=== PATIENT | male | born 1945 | race Caucasian/White ===

== ENCOUNTER → 2019-02-17 | Outpatient (CLI) | payer MEDICARE, OTHER ==
--- NOTE | 2019-02-17 11:04 | Diagnostic Imaging Report ---
INDICATION: Left shoulder pain x 3 months. No known injury. TECHNIQUE: Two views of the left shoulder. CORRELATION STUDY: None. FINDINGS: There is narrowing of the glenohumeral joint with slight loss of normal smooth margins of the bony glenoid, suggestive of chronic degenerative change. The acromioclavicular joint is also with mild degenerative changes. Bony structures and joints are otherwise unremarkable. Soft tissues appearing unremarkable. 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 Negative for acute bony abnormality. Dictated by: Dictated on workstation # [id number]
== END ==
LOC: RAD FS 10:25
PROVIDERS: ATTEND Family Medicine
DX: S46.912A Strain of unspecified muscle, fascia and tendon at shoulder and upper arm level, left arm, initial encounter (principal); M19.012 Primary osteoarthritis, left shoulder
CPT/HCPCS: 73030

== ENCOUNTER 2021-02-15 11:30 | Emergency (ER) | payer MEDICARE, OTHER ==
[~2021-02-15] VITALS: Ht 170 cm; Wt 124.0 kg
--- NOTE | 2021-02-15 11:56 | ED Dyspnea ---
General Chief Complaint: Respiratory Problems Stated Complaint: SOB Nursing Triage Note: PT REPORTS SOB FOR 6-8 WEEKS MAYBE 6 MONTHS(?) NOW. HE HAS BEEN TO HIS DR BINGHAM AND HE WAS TOLD TO TAKE MUCINEX. PT REPORTS HE BECOMES MORE SHORT OF BREATH WHEN HE LAYS DOWN. DENIES SWELLING AND IS NOT CURRENTLY SOB. Source of Information: Patient History of Present Illness Date Seen by Provider: Feb 15, 2021 Time Seen by Provider: 11:31 Initial Comments 75-year-old male presenting with complaints of shortness of breath and cough. He states that he gets thick phlegm that he cannot cough up and gets stuck at the base of his throat and top of his lungs. He denies any fever or chills. He states that this is been a chronic ongoing issue for him but feels like it has been worse in the last several months. He has seen the primary care clinic recently and was told to take Mucinex. He states that that helps but that he feels like he has to take a whole bottle before it will make a difference. He has not tried to follow-up with his primary doctor about the continued symptoms. He feels like some of this is related to hayfever issues he has had since a child. He has more trouble with drainage choking him when he tries to lay down. He denies having any swelling or increasing edema. He has has no chest pain or tightness. He denies any fever or chills. He has had no nausea or vomiting. He reports that he is scheduled to see Dr. Bingham in a few days but felt that he could not wait any longer to be seen. He does admit that currently on arrival to the emergency department he is not doing poorly but that at times he feels like he cannot "get his wind". Allergies and Home Medications Allergies Coded Allergies: No Known Drug Allergies (Unverified , 02/15/21) Home Medications Azithromycin 500 Mg Tablet, 500 MG PO DAILY Prescribed by: JULIO CESAR HARRELL on 02/15/21 1248 Prednisone 20 Mg Tab, 40 MG PO DAILY Prescribed by: JULIO CESAR HARRELL on 02/15/21 1248 Patient Home Medication List Home Medication List Reviewed: Yes Review of Systems Review of Systems Constitutional: No chills, No diaphoresis, No dizziness, No fever EENTM: No ear discharge, No hearing loss, No ear pain, No blurred vision, No hoarseness, No epistaxis, No nose congestion, No nose pain, No throat swelling Respiratory: cough (non productive as he is not able to bring up any phlegm when he coughs); No hemoptysis, No orthopnea; phlegm (feels like he has a lot of phlegm in his chest and gets drainage that chokes him when he tries to lay back), short of breath (intermittently will get short of breath); No stridor, No wheezing Cardiovascular: No chest pain, No edema, No palpitations, No syncope; vascular heart diseas (prior stents) Gastrointestinal: see HPI Genitourinary: no symptoms reported Musculoskeletal: no symptoms reported Skin: lesions (right elbow lesion that was recently removed for biopsy and still has stitches in place) Psychiatric/Neurological: Denies Headache, Denies Numbness, Denies Paresthesia, Denies Weakness Endocrine: No Symptoms Reported Hematologic/Lymphatic: No Symptoms Reported Past Ddztuaf-[id number] Hx Past Med/Social Hx: Reviewed Nursing Past Med/Soc Hx Patient Social History Alcohol Use: Denies Use Smoking Status: Light Tobacco Smoker Type Used: Smokeless Tobacco 2nd Hand Smoke Exposure: No Recent Infectious Disease Expo: No Recent Hopitalizations: No Seasonal Allergies Seasonal Allergies: No Past Medical History Surgeries: Yes Coronary Stent Respiratory: No Cardiac: Yes Coronary Artery Disease, High Cholesterol, Hypertension Neurological: No Genitourinary: Yes Prostate Problems Gastrointestinal: No Musculoskeletal: No Endocrine: No HEENT: No Cancer: No Psychosocial: No Integumentary: No Blood Disorders: No Physical Exam Vital Signs Vital Signs - First Documented 02/15/21 11:34 Temp 36.4 Pulse 64 Resp 18 B/P (MAP) 114/95 (101) Pulse Ox 96 O2 Delivery Room Air Capillary Refill : Less Than 3 Seconds Height, Weight, BMI Height: '" Weight: lbs. oz. kg; 42.00 BMI Method: General Appearance: No Apparent Distress, Obese HEENT: PERRL/EOMI, Pharynx Normal Neck: Full Range of Motion, Normal Inspection, Non Tender, Supple Respiratory: Chest Non Tender, Lungs Clear, Normal Breath Sounds, No Accessory Muscle Use, No Respiratory Distress Cardiovascular: Regular Rate, Rhythm, No JVD, No Murmur, Normal Peripheral Pulses Gastrointestinal: No Pulsatile Mass, Non Tender, Soft Extremity: Normal Capillary Refill, No Pedal Edema Neurologic/Psychiatric: Alert, Oriented x3, No Motor/Sensory Deficits, traveling clerk II- XII Norm as Tested Skin: Normal Color, Warm/Dry Progress/Results/Core Measures Results/Orders Lab Results Laboratory Tests Test 02/15/21 11:50 Range/Units White Blood Count 7.8 4.3-11.0 10^3/uL Red Blood Count 4.87 4.35-5.85 10^6/uL Hemoglobin 14.7 13.3-17.7 G/DL Hematocrit 43 40-54 % Mean Corpuscular Volume 89 80-99 FL Mean Corpuscular Hemoglobin 30 25-34 PG Mean Corpuscular Hemoglobin Concent 34 32-36 G/DL Red Cell Distribution Width 13.2 10.0-14.5 % Platelet Count 213 130-400 10^3/uL Mean Platelet Volume 9.5 7.4-10.4 FL Immature Granulocyte % (Auto) 1 % Neutrophils (%) (Auto) 64 42-75 % Lymphocytes (%) (Auto) 17 12-44 % Monocytes (%) (Auto) 10 0-12 % Eosinophils (%) (Auto) 7 0-10 % Basophils (%) (Auto) 1 0-10 % Neutrophils # (Auto) 5.0 1.8-7.8 X 10^3 Lymphocytes # (Auto) 1.4 1.0-4.0 X 10^3 Monocytes # (Auto) 0.8 0.0-1.0 X 10^3 Eosinophils # (Auto) 0.5 H 0.0-0.3 10^3/uL Basophils # (Auto) 0.1 0.0-0.1 10^3/uL Immature Granulocyte # (Auto) 0.1 0.0-0.1 10^3/uL Sodium Level 137 135-145 MMOL/L Potassium Level 4.4 3.6-5.0 MMOL/L Chloride Level 102 98-107 MMOL/L Carbon Dioxide Level 28 21-32 MMOL/L Anion Gap 7 5-14 MMOL/L Blood Urea Nitrogen 13 7-18 MG/DL Creatinine 0.82 0.60-1.30 MG/DL Estimat Glomerular Filtration Rate > 60 BUN/Creatinine Ratio 16 Glucose Level 125 H 70-105 MG/DL Calcium Level 9.4 8.5-10.1 MG/DL Corrected Calcium 9.2 8.5-10.1 MG/DL Total Bilirubin 0.2 0.1-1.0 MG/DL Aspartate Amino Transf (AST/SGOT) 17 5-34 U/L Alanine Aminotransferase (ALT/SGPT) 18 0-55 U/L Alkaline Phosphatase 95 40-136 U/L Pro-B-Type Natriuretic Peptide 43.8 <75.0 PG/ML Total Protein 7.2 6.4-8.2 GM/DL Albumin 4.3 3.2-4.5 GM/DL My Orders Orders - JULIO CESAR HARRELL MD Cbc With Automated Diff (02/15/21 11:47) Comprehensive Metabolic Panel (02/15/21 11:47) Chest Pa/Lat (2 View) (02/15/21 11:47) Ed Iv/Invasive Line Start (02/15/21 11:47) Sputum Culture (02/15/21 11:47) Probnp Fs (02/15/21 11:47) Methylprednisolone Sod Succ (Solu-Medrol (02/15/21 12:36) Azithromycin Tablet (Zithromax Tablet) (02/15/21 12:36) Vital Signs/I&O 02/15/21 11:34 Temp 36.4 Pulse 64 Resp 18 B/P (MAP) 114/95 (101) Pulse Ox 96 O2 Delivery Room Air Blood Pressure Mean: 101 Progress Progress Note #1: Progress Note check labs, CXR. Differential diagnosis of pneumonia, CHF, COPD, Bronchitis, Allergic rhinitis with asthma, GERD with aspiration Progress Note #2: Time: 12:29 Progress Note CBC and chemistry without acute significant abnormality. CXR read as minimal patchy left basilar infiltrate. No effusion or cardiomegaly. With his cough and symptoms lasting for several weeks to months, and that he uses smokeless tobacco, will try treating with antibiotic and steroid for his cough and the minimal infiltrate seen in left base of lung. Check back with Dr. Bingham for continued problems or if not improving with treatment. Diagnostic Imaging Diagonstic Imaging: Xray Plain Films/CT/US/NM/MRI: chest Comments NAME: TITO HARVEY [facility] REC#: [id number] PT STATUS: REG ER : 1945 PHYSICIAN: JULIO CESAR HARRELL MD ADMIT DATE: 02/15/21/ER FS Draft Date of Exam:02/15/21 CHEST PA/LAT (2 VIEW) INDICATION: Cough and shortness of breath. TIME OF EXAM: 11:49 AM. COMPARISON: No prior studies are available for comparison. FINDINGS: The heart size is normal. There appears to be some minimal patchy infiltrate in the left base. The right lung is clear. There is no effusion or pneumothorax detected. Postop changes of the left shoulder are noted. IMPRESSION: Minimal patchy left basilar infiltrate. Dictated on workstation # [id number] Dict: 02/15/21 1226 Trans: 02/15/21 1227 [id number] Interpreted by: ANA LIRA MD Electronically signed by: Departure Impression Primary Impression: Basal pneumonia Additional Impressions: Cough in adult Chronic shortness of breath Disposition: HOME, SELF-CARE Condition: Stable Departure-Patient Inst. Decision time for Depature: 12:47 Referrals: ROSA BINGHAM MD (PCP/Family) Primary Care Physician Patient Instructions: Pneumonia, Adult ED, Shortness of Breath, Adult ED, Cough, Adult ED Add. Discharge Instructions: Take course of antibiotics to treat for small amount of pneumonia seen in base of left lung on xrays. Take steroid to help break up phlegm and congestion. You may also take Mucinex to help with phlegm and cough. Make sure you are drinking plenty of water with this to make it work effectively. Check back with clinic if you are not seeing improvement by the beginning of next week. All discharge instructions reviewed with patient and/or family. Voiced understanding. Scripts Prednisone (Prednisone) 20 Mg Tab 40 MG PO DAILY for cough/congestion for 4 Days, #8 TAB 0 Refills Prov: JULIO CESAR HARRELL MD 02/15/21 Azithromycin (Azithromycin) 500 Mg Tablet 500 MG PO DAILY for pneumonia for 4 Days, #4 TAB 0 Refills Prov: JULIO CESAR HARRELL MD 02/15/21 JULIO CESAR HARRELL MD Feb 15, 2021 11:56
[2021-02-15 12:22] LABS: BASOPHILS % (AUTO) 1 % (0-10); EOSINOPHILS % (AUTO) 7 % (0-10); HEMATOCRIT 43 % (40-54); HEMOGLOBIN 14.7 G/DL (13.3-17.7); LYMPHOCYTES % (AUTO) 17 % (12-44); MEAN CORPUSCULAR HEMOGLOBIN 30 PG (25-34); MEAN CORPUSCULAR HGB CONC 34 G/DL (32-36); MEAN CORPUSCULAR VOLUME 89 FL (80-99); MEAN PLATELET VOLUME 9.5 FL (7.4-10.4); MONOCYTES % (AUTO) 10 % (0-12); NEUTROPHILS % (AUTO) 64 % (42-75); PLATELET COUNT 213 10^3/uL (130-400); WHITE BLOOD COUNT 7.8 10^3/uL (4.3-11.0)
[2021-02-15 12:23] LABS: BASOPHILS # (AUTO) 0.1 10^3/uL (0.0-0.1); BUN/CREATININE RATIO 16; CARBON DIOXIDE 28 MMOL/L (21-32); CHLORIDE 102 MMOL/L (98-107); CREATININE SERUM 0.82 MG/DL (0.60-1.30); EOSINOPHILS # (AUTO) 0.5 10^3/uL (0.0-0.3); GFR ESTIMATED > 60; LYMPHOCYTES # (AUTO) 1.4 X 10^3 (1.0-4.0); MONOCYTES # (AUTO) 0.8 X 10^3 (0.0-1.0); POTASSIUM 4.4 MMOL/L (3.6-5.0); SODIUM 137 MMOL/L (135-145)
[2021-02-15 12:24] LABS: ALANINE AMINOTRANSFERASE 18 U/L (0-55); ALBUMIN 4.3 GM/DL (3.2-4.5); ALKALINE PHOSPHATASE 95 U/L (40-136); BILIRUBIN,TOTAL 0.2 MG/DL (0.1-1.0); CALCIUM 9.4 MG/DL (8.5-10.1); GLUCOSE 125 MG/DL (70-105); TOTAL PROTEIN 7.2 GM/DL (6.4-8.2)
--- NOTE | 2021-02-15 12:27 | Diagnostic Imaging Report ---
INDICATION: Cough and shortness of breath. TIME OF EXAM: 11:49 AM. COMPARISON: No prior studies are available for comparison. FINDINGS: The heart size is normal. There appears to be some minimal patchy infiltrate in the left base. The right lung is clear. There is no effusion or pneumothorax detected. Postop changes of the left shoulder are noted. IMPRESSION: Minimal patchy left basilar infiltrate. Dictated by: Dictated on workstation # [id number]
[2021-02-15] MEDS ORDERED: AZITHROMYCIN 250 MG TAB (ZITHROMAX) PO STA (12:36)
[2021-02-15] MEDS ORDERED: methylPREDNISolone 125 MG (Solu-MEDROL) VIAL IVP STA (12:36)
[2021-02-15] MEDS ORDERED: AZIT500T9 PO (12:48)
[2021-02-15] MEDS ORDERED: PRD20T PO (12:48)
[2021-02-15 12:55] VITALS: BP 114/95
== END 2021-02-15 12:55 | disposition home or self-care (01) ==
LOC: EDUNIT# 11:30 → ER FS 11:31
DX: J18.8 Other pneumonia, unspecified organism (principal); R06.02 Shortness of breath; I10 Essential (primary) hypertension; F17.200 Nicotine dependence, unspecified, uncomplicated; Z79.52 Long term (current) use of systemic steroids
CPT/HCPCS: 36415; 71046; 80053; 83880; 85025

== ENCOUNTER 2021-10-28 12:17 | Outpatient (CLI) | payer MEDICARE, OTHER ==
[~2021-10-28 12:17] MED LIST: AZIT500T9 PO; PRD20T PO
== END 2021-10-28 12:33 ==
LOC: SLEEP 12:17
PROVIDERS: ATTEND Otolaryngology Otolaryngology/Facial Plastic Surgery
DX: G47.33 Obstructive sleep apnea (adult) (pediatric) (principal); I25.9 Chronic ischemic heart disease, unspecified
CPT/HCPCS: G0399

== ENCOUNTER → 2023-01-30 | Outpatient (CLI) | payer MEDICARE, OTHER | LOC: CARDFS 11:28 | PROVIDERS: ATTEND Family Medicine | DX: I11.9 Hypertensive heart disease without heart failure (principal) | CPT/HCPCS: 93306 ==